=== PATIENT | male | born 1995 | race Caucasian/White ===

== ENCOUNTER → 2020-12-12 | Outpatient (CLI) | payer SELFPAY ==
[~2020-12-12] MED LIST: HYDR1TAB8 OP
[2020-12-12 19:47] LABS: SEMEN VOLUME 3.1 ML (1.5-5.0)
== END ==
LOC: LAB 18:48
PROVIDERS: ATTEND Family Medicine
DX: N46.9 Male infertility, unspecified (principal)
CPT/HCPCS: 89320

== ENCOUNTER → 2020-12-21 | Outpatient (CLI) | payer BC | LOC: LAB 16:34 | PROVIDERS: ATTEND Urology | DX: N46.9 Male infertility, unspecified (principal) | CPT/HCPCS: 36415; 83001; 83002; 84146; 84402; 84403 ==

== ENCOUNTER → 2021-04-12 | Outpatient (CLI) | payer BC | LOC: LAB 17:19 | PROVIDERS: ATTEND Urology | DX: N46.9 Male infertility, unspecified (principal) | CPT/HCPCS: 89320 ==